=== PATIENT | male | born 1960 | race Caucasian/White ===

== ENCOUNTER 2023-03-25 08:46 | Day surgery (SDC) | payer BC ==
[2023-03-21 12:29] VITALS: BMI 26.2
[2023-03-25] MEDS ORDERED: PROPOFOL 20 ML ONE (10:11)
[2023-03-25 14:35] VITALS: TEMP 97.9
[2023-03-25 14:38] VITALS: BP 101/58; PULSE 72; RESP 16
== END 2023-03-25 11:30 | disposition home or self-care (01) ==
LOC: FASU-ENDO 08:46
PROVIDERS: ATTEND Internal Medicine Gastroenterology
PROC: 0DBK8ZX Excision of Ascending Colon, Via Natural or Artificial Opening Endoscopic, Diagnostic (ICD-10-PCS; principal; 2023-03-25 10:30)
DX: Z12.11 Encounter for screening for malignant neoplasm of colon (principal); D12.0 Benign neoplasm of cecum
CPT/HCPCS: 88305-TC